=== PATIENT | male | born 1985 | race Caucasian/White ===

== ENCOUNTER 2017-11-08 10:13 | Emergency (ER) | payer OTHER ==
[~2017-11-08] VITALS: Ht 190.5 cm; Wt 95.3 kg
[~2017-11-08 10:13] MED LIST: NOHOMEMEDICATIONS; VICODIN 5-5001 EACH PO
[2017-11-08] MEDS ORDERED: ZYPREXA 5 MG TAB5 MG PO (10:23)
[2017-11-08] MEDS ORDERED: KEFLEX500 M1 PO (10:59)
[2017-11-08 11:10] VITALS: BP 132/85
== END 2017-11-08 11:11 | disposition home or self-care (01) ==
LOC: M.ERS 10:13
DX: S61.011A Laceration without foreign body of right thumb without damage to nail, initial encounter (principal); Z88.5 Allergy status to narcotic agent; W26.8XXA Contact with other sharp object(s), not elsewhere classified, initial encounter; Y93.89 Activity, other specified; Y92.89 Other specified places as the place of occurrence of the external cause; Y99.8 Other external cause status